=== PATIENT | male | born 1995 ===

== ENCOUNTER → 2020-03-04 12:47 | Outpatient (ROUT) | payer OTHER, SELFPAY ==
[2020-03-04 13:28] LABS: COVID19 -Nasal RAPID Negative (Negative)
== END ==
PROVIDERS: Visit Provider Family Medicine
DX: Z20.822 Contact with and (suspected) exposure to COVID-19 (principal)
CPT/HCPCS: 87635

== ENCOUNTER → 2020-11-19 16:21 | Outpatient (ROUT) | payer OTHER, SELFPAY ==
[2020-11-19 16:49] LABS: COVID19 -Nasal RAPID Negative (Negative)
== END ==
PROVIDERS: Visit Provider Family Medicine
DX: Z20.822 Contact with and (suspected) exposure to COVID-19 (principal); R51.9 Headache, unspecified; R50.9 Fever, unspecified
CPT/HCPCS: 87635